=== PATIENT | female | born 1930 | race Hispanic/Latino ===

== ENCOUNTER 2018-09-05 22:17 | Inpatient (IN) | payer MEDICARE ==
[~2018-09-05] VITALS: Ht 160 cm; Wt 65.6 kg
[2018-09-05 22:55] LABS: BASOPHILS % (AUTO) 0.3 % (0.0-5.0); EOSINOPHILS % (AUTO) 2.5 % (0.0-8.0); HEMATOCRIT 45.9 % (36-48); LYMPHOCYTES % (AUTO) 28.8 % (21.0-51.0); MEAN CORPUSCULAR HEMOGLOBIN 34.3 pg (27.0-33.0); MEAN CORPUSCULAR HGB CONC 34.5 g/dL (32.0-36.0); MEAN CORPUSCULAR VOLUME 99.5 fL (79-99); MONOCYTES % (AUTO) 6.4 % (3.0-13.0); PLATELET COUNT (AUTO) 159 K/uL (130-400); RED BLOOD CELL COUNT(AUTO) 4.62 MIL/uL (4.00-5.50); RED CELL DISTRIBUTION WIDTH 14.3 % (11.0-15.5); WHITE BLOOD COUNT (AUTO) 6.4 K/uL (4.8-10.8)
[2018-09-05 23:07] LABS: CARBON DIOXIDE 33 mmol/L (21-32); CHLORIDE 101 mmol/L (101-111); CREATININE 1.4 mg/dL (0.5-1.5); GLOMERULAR FILTR. RATE CALC 38 mL/min (>60); GLUCOSE,RANDOM 139 mg/dL (70-105); POTASSIUM 3.9 mmol/L (3.5-5.1); SODIUM SERUM 142 mmol/L (136-145); UREA NITROGEN, BLOOD 26 mg/dL (7-18)
[2018-09-05 23:09] LABS: INR 0.96 (0.85-1.15); PARTIAL THROMBOPLASTIN TIME 26.1 SEC (26.3-35.5); PROTHROMBIN TIME 10.1 SEC (9.6-11.6)
[2018-09-05] MEDS ORDERED: LEVOFLOXACIN 500 MG/D5W 100 ML 100 ML ONE (23:09)
[2018-09-05] MEDS ORDERED: METHYLPREDNISOLONE SOD SUCC 125MG/2ML VIAL ONE (23:09)
[2018-09-05 23:12] LABS: APPEARANCE,URINE Clear (CLEAR); BILIRUBIN,URINE Negative (NEGATIVE); COLOR,URINE Yellow (YELLOW); GLUCOSE, URINE (UA) Negative (NEGATIVE); KETONES,URINE Trace mg/dL (NEGATIVE); LEUKOCYTE ESTERASE ,URINE Moderate (NEGATIVE); NITRATE,URINE Negative (NEGATIVE); OCCULT BLOOD,URINE Negative (NEGATIVE); PROTEIN,URINE POS 2+ (NEGATIVE); UROBILINOGEN,URINE 0.2 mg/dL (0.2-1.0)
[2018-09-05 23:20] LABS: ALANINE AMINOTRANSFERASE 20 U/L (12-78); ALBUMIN 3.5 g/dL (3.5-5.0); ASPARTATE AMINOTRANSFERASE 21 U/L (10-37); BILIRUBIN,TOTAL 0.9 mg/dL (0.2-1.0); CREATINE KINASE, TOTAL 18 U/L (21-232); MYOGLOBIN 100 ng/mL (10-92); TOTAL PROTEIN, SERUM 7.7 g/dL (6.0-8.3); TROPONIN I < 0.04 ng/mL (0.00-0.06)
[2018-09-05 23:22] LABS: BACTERIA,URINE Few /HPF (None Seen); MUCUS,URINE Moderate LPF (None Seen); RBC,URINE None Seen /HPF (0-1); SQUAMOUS EPITHELIAL CELL,UR Few /HPF (0-2)
[2018-09-06 00:43] LABS: ABG BASE EXCESS 4.7 mmol/L (-2.0-3.0); ABG HCO3 31.4 mmol/L (21.0-28.0); ABG OXYGEN SATURATION 97.6 % (95.0-99.0); ABG PCO2 55 mmHg (32-45)
[2018-09-06] MEDS ORDERED: IOHEXOL-350 75 ML VIAL IV ONE (01:18)
[2018-09-06] MEDS ORDERED: LORAZEPAM 2 MG/ML 1 ML VIAL ONE ×2 (01:49→02:51)
[2018-09-06] MEDS ORDERED: IPRATROPIUM/ALBUTEROL SULFATE 3 ML SOLUTION IH ONE ×3 (03:38→09:09)
[2018-09-06] MEDS: LEVOFLOXACIN 500 MG/D5W 100 ML 100 ML IV SCH (06:00)
[2018-09-06] MEDS: IPRATROPIUM/ALBUTEROL SULFATE 3 ML SOLUTION IH PRN ×5 (06:13→21:28)
[2018-09-06] MEDS ORDERED: ENOXAPARIN SODIUM 30 MG/0.3 ML SQ ONE (07:59)
[2018-09-06] MEDS ORDERED: PANTOPRAZOLE SODIUM 40 MG TABLET.DR PO ONE (08:00)
[2018-09-06 08:20] LABS: EOSINOPHILS % (AUTO) 0.1 % (0.0-8.0); MEAN CORPUSCULAR VOLUME 98.9 fL (79-99); RED CELL DISTRIBUTION WIDTH 14.1 % (11.0-15.5)
[2018-09-06 08:28] LABS: BASOPHILS % (AUTO) 0.1 % (0.0-5.0); HEMATOCRIT 42.4 % (36-48); LYMPHOCYTES % (AUTO) 11.6 % (21.0-51.0); MEAN CORPUSCULAR HEMOGLOBIN 34.4 pg (27.0-33.0); MEAN CORPUSCULAR HGB CONC 34.8 g/dL (32.0-36.0); MONOCYTES % (AUTO) 0.9 % (3.0-13.0); NEUTROPHILS % (AUTO) 87.3 % (40.0-77.0); PLATELET COUNT (AUTO) 139 K/uL (130-400); RED BLOOD CELL COUNT(AUTO) 4.28 MIL/uL (4.00-5.50)
[2018-09-06 08:30] LABS: CREATININE 1.5 mg/dL (0.5-1.5); POTASSIUM 4.1 mmol/L (3.5-5.1)
[2018-09-06 08:35] LABS: ALBUMIN 3.1 g/dL (3.5-5.0); BILIRUBIN,TOTAL 0.5 mg/dL (0.2-1.0); TOTAL PROTEIN, SERUM 7.3 g/dL (6.0-8.3)
[2018-09-06] MEDS ORDERED: RANI150C4 PO (08:38)
[2018-09-06] MEDS ORDERED: ALLO100T PO (08:38)
[2018-09-06] MEDS ORDERED: POTA10TA14 PO (08:38)
[2018-09-06] MEDS ORDERED: CHOL200012 PO (08:38)
[2018-09-06] MEDS ORDERED: AMLO5TAB7 PO (08:38)
[2018-09-06] MEDS ORDERED: CALC0.253 PO (08:38)
[2018-09-06] MEDS ORDERED: FURO40TA5 PO (08:38)
[2018-09-06] MEDS ORDERED: FOLI1TAB85 PO (08:38)
[2018-09-06] MEDS ORDERED: MONT10TA21 PO (08:38)
[2018-09-06] MEDS ORDERED: CALC-1009 PO (08:38)
[2018-09-06] MEDS ORDERED: PRAV20TA4 PO (08:38)
[2018-09-06 08:45] LABS: LYMPHOCYTES % (MANUAL) 8 % (22-44); MAN.DIFF COMMENT-IMPRESSION MANUAL DIFFERENTIAL; MONOCYTES % (MANUAL) 1 % (2-9); PLATELET MORPHOLOGY COMMENT ADEQUATE; REACTIVE LYMPHOCYTES 9 % (0-0); SEGMENTED NEUTROPHILS % 82 % (40-70)
[2018-09-06] MEDS: ENOXAPARIN SODIUM 30 MG/0.3 ML SQ SCH (09:00)
[2018-09-06] MEDS: PANTOPRAZOLE SODIUM 40 MG TABLET.DR PO SCH (09:00)
[2018-09-06 09:30] VITALS: BP 151/66
[2018-09-06 11:00] VITALS: BP 151/73
[2018-09-06] MEDS ORDERED: FUROSEMIDE 10 MG/ML 4ML VIAL IV SCH ×2 (12:15→17:15)
[2018-09-06] MEDS ORDERED: CALCITRIOL 0.25 MCG CAPSULE PO SCH (12:30)
[2018-09-06 16:00] VITALS: BP 141/57
[2018-09-06] MEDS ORDERED: LABETALOL HCL 5 MG/ML 20ML VIAL IV PRN (17:15)
[2018-09-06] MEDS: AMLODIPINE BESYLATE 5 MG TAB PO SCH (17:50)
[2018-09-06] MEDS ORDERED: SODIUM CHLORIDE 3% FOR INHALATION 4 ML/AMP VIAL.NEB IH ONE (19:14)
[2018-09-06 20:00] VITALS: BP 128/61
[2018-09-06] MEDS: INSULIN HUMULIN R 100 UNIT/ML 3ML SQ SCH (21:00)
[2018-09-06] MEDS: ALLOPURINOL 100 MG TABLET PO SCH (21:31)
[2018-09-06] MEDS: FUROSEMIDE 10 MG/ML 4ML VIAL IV SCH (21:31)
[2018-09-06] MEDS: METHYLPREDNISOLONE SOD SUCC 40MG/ML 1ML IVP SCH (21:31)
[2018-09-06] MEDS: RANITIDINE HCL 15 MG/1 ML PO SCH (21:31)
[2018-09-07] VITALS: BP 131/59
[2018-09-07] MEDS: IPRATROPIUM/ALBUTEROL SULFATE 3 ML SOLUTION IH PRN ×6 (01:28→22:15)
[2018-09-07] MEDS ORDERED: SODIUM CHLORIDE 3% FOR INHALATION 4 ML/AMP VIAL.NEB IH ONE ×2 (02:39→07:21)
[2018-09-07 04:00] VITALS: BP 138/58
[2018-09-07 04:27] LABS: HEMATOCRIT 39.4 % (36-48); LYMPHOCYTES % (AUTO) 7.3 % (21.0-51.0); MEAN CORPUSCULAR HEMOGLOBIN 34.4 pg (27.0-33.0); MEAN CORPUSCULAR HGB CONC 34.6 g/dL (32.0-36.0); MEAN CORPUSCULAR VOLUME 99.4 fL (79-99); MONOCYTES % (AUTO) 2.2 % (3.0-13.0); NEUTROPHILS % (AUTO) 90.5 % (40.0-77.0); PLATELET COUNT (AUTO) 122 K/uL (130-400); RED BLOOD CELL COUNT(AUTO) 3.97 MIL/uL (4.00-5.50); RED CELL DISTRIBUTION WIDTH 14.1 % (11.0-15.5); WHITE BLOOD COUNT (AUTO) 4.6 K/uL (4.8-10.8)
[2018-09-07 04:41] LABS: B-TYPE NATRIURETIC PEPTIDE 210 pg/mL (0-100)
[2018-09-07 04:47] LABS: ALBUMIN 2.9 g/dL (3.5-5.0); BILIRUBIN,TOTAL 0.4 mg/dL (0.2-1.0); CREATININE 1.6 mg/dL (0.5-1.5); TOTAL PROTEIN, SERUM 6.5 g/dL (6.0-8.3)
[2018-09-07] MEDS: LEVOFLOXACIN 500 MG/D5W 100 ML 100 ML IV SCH (05:23)
[2018-09-07] MEDS: METHYLPREDNISOLONE SOD SUCC 40MG/ML 1ML IVP SCH ×3 (05:23→21:47)
[2018-09-07] MEDS: INSULIN HUMULIN R 100 UNIT/ML 3ML SQ SCH ×4 (06:44→20:52)
[2018-09-07 07:34] VITALS: BP 137/62
[2018-09-07] MEDS: **HM** VIT D3 2000 UNITS PO SCH (09:00)
[2018-09-07] MEDS ORDERED: AMLODIPINE BESYLATE 5 MG TAB PO SCH (09:00)
[2018-09-07] MEDS ORDERED: FUROSEMIDE 40 MG TABLET PO SCH (09:00)
[2018-09-07] MEDS: CALCIUM 600 + VITAMIN D 400 TABLET PO SCH (10:19)
[2018-09-07] MEDS: ALLOPURINOL 100 MG TABLET PO SCH ×2 (10:20→20:51)
[2018-09-07] MEDS: ATORVASTATIN CALCIUM 10 MG TABLET PO SCH (10:20)
[2018-09-07] MEDS: PANTOPRAZOLE SODIUM 40 MG TABLET.DR PO SCH (10:20)
[2018-09-07] MEDS: AMLODIPINE BESYLATE 5 MG TAB PO SCH (10:20)
[2018-09-07] MEDS: POTASSIUM CHLORIDE 10 MEQ/TAB.SA PO SCH (10:20)
[2018-09-07] MEDS: MONTELUKAST SODIUM 10 MG TAB PO SCH (10:20)
[2018-09-07] MEDS: ENOXAPARIN SODIUM 30 MG/0.3 ML SQ SCH (10:21)
[2018-09-07] MEDS: FOLIC ACID/VITAMIN B COMP W-C 1 MG CAPSULE PO SCH (10:21)
[2018-09-07 11:48] VITALS: BP 144/67
[2018-09-07] MEDS: RANITIDINE HCL 15 MG/1 ML PO SCH ×2 (12:03→20:51)
[2018-09-07] MEDS: FUROSEMIDE 10 MG/ML 4ML VIAL IV SCH ×2 (12:03→20:51)
[2018-09-07 16:00] VITALS: BP 138/68
[2018-09-07 20:12] VITALS: BP 149/61
[2018-09-08 00:12] VITALS: BP 145/68
[2018-09-08 04:16] VITALS: BP 158/75
[2018-09-08] MEDS: LEVOFLOXACIN 500 MG/D5W 100 ML 100 ML IV SCH (04:53)
[2018-09-08] MEDS: METHYLPREDNISOLONE SOD SUCC 40MG/ML 1ML IVP SCH ×3 (04:53→21:33)
[2018-09-08] MEDS: INSULIN HUMULIN R 100 UNIT/ML 3ML SQ SCH ×4 (05:14→20:46)
[2018-09-08] MEDS ORDERED: NA P133E22 RC (05:29)
[2018-09-08] MEDS ORDERED: NA PHOS M B PR PRN (05:30)
[2018-09-08] MEDS ORDERED: NA PHOS DI BA PR PRN (05:30)
[2018-09-08] MEDS ORDERED: LORAZEPAM 2 MG/ML 1 ML VIAL IVP ONE (06:00)
[2018-09-08 07:39] VITALS: BP 140/65
[2018-09-08] MEDS: IPRATROPIUM/ALBUTEROL SULFATE 3 ML SOLUTION IH PRN ×2 (08:15→19:16)
[2018-09-08] MEDS: AMLODIPINE BESYLATE 5 MG TAB PO SCH (08:30)
[2018-09-08] MEDS: MONTELUKAST SODIUM 10 MG TAB PO SCH (08:31)
[2018-09-08] MEDS: CALCIUM 600 + VITAMIN D 400 TABLET PO SCH (08:31)
[2018-09-08] MEDS: RANITIDINE HCL 15 MG/1 ML PO SCH ×2 (08:31→20:08)
[2018-09-08] MEDS: PANTOPRAZOLE SODIUM 40 MG TABLET.DR PO SCH (08:31)
[2018-09-08] MEDS: ALLOPURINOL 100 MG TABLET PO SCH ×2 (08:31→20:08)
[2018-09-08] MEDS: FOLIC ACID/VITAMIN B COMP W-C 1 MG CAPSULE PO SCH (08:31)
[2018-09-08] MEDS: POTASSIUM CHLORIDE 10 MEQ/TAB.SA PO SCH (08:31)
[2018-09-08] MEDS: ATORVASTATIN CALCIUM 10 MG TABLET PO SCH (08:31)
[2018-09-08] MEDS: **HM** VIT D3 2000 UNITS PO SCH (08:32)
[2018-09-08] MEDS: ENOXAPARIN SODIUM 30 MG/0.3 ML SQ SCH (08:32)
[2018-09-08] MEDS: FUROSEMIDE 10 MG/ML 4ML VIAL IV SCH ×2 (08:33→20:08)
[2018-09-08 11:25] VITALS: BP 132/71
[2018-09-08 15:48] VITALS: BP 148/76
[2018-09-08 20:16] VITALS: BP 162/78
[2018-09-09 00:24] VITALS: BP 158/77
[2018-09-09 03:58] LABS: HEMATOCRIT 41.3 % (36-48); MEAN CORPUSCULAR HEMOGLOBIN 34.6 pg (27.0-33.0); MEAN CORPUSCULAR HGB CONC 34.8 g/dL (32.0-36.0); MEAN CORPUSCULAR VOLUME 99.5 fL (79-99); NUCLEATED RED BLOOD CELLS 0.1 % (0.0-0.19); PLATELET COUNT (AUTO) 140 K/uL (130-400); RED BLOOD CELL COUNT(AUTO) 4.15 MIL/uL (4.00-5.50); RED CELL DISTRIBUTION WIDTH 14.4 % (11.0-15.5); WHITE BLOOD COUNT (AUTO) 4.4 K/uL (4.8-10.8)
[2018-09-09 04:07] LABS: CREATININE 1.5 mg/dL (0.5-1.5); MAGNESIUM 2.1 mg/dL (1.80-2.40); POTASSIUM 3.7 mmol/L (3.5-5.1)
[2018-09-09 04:24] VITALS: BP 150/70
[2018-09-09] MEDS: METHYLPREDNISOLONE SOD SUCC 40MG/ML 1ML IVP SCH ×2 (05:21→14:26)
[2018-09-09] MEDS: LEVOFLOXACIN 500 MG/D5W 100 ML 100 ML IV SCH (05:21)
[2018-09-09] MEDS: INSULIN HUMULIN R 100 UNIT/ML 3ML SQ SCH ×3 (06:34→16:30)
[2018-09-09 08:00] VITALS: BP 146/58
[2018-09-09] MEDS: RANITIDINE HCL 15 MG/1 ML PO SCH (08:17)
[2018-09-09] MEDS: FOLIC ACID/VITAMIN B COMP W-C 1 MG CAPSULE PO SCH (08:17)
[2018-09-09] MEDS: FUROSEMIDE 10 MG/ML 4ML VIAL IV SCH (08:18)
[2018-09-09] MEDS: POTASSIUM CHLORIDE 10 MEQ/TAB.SA PO SCH (08:18)
[2018-09-09] MEDS: AMLODIPINE BESYLATE 5 MG TAB PO SCH (08:18)
[2018-09-09] MEDS: ATORVASTATIN CALCIUM 10 MG TABLET PO SCH (08:18)
[2018-09-09] MEDS: PANTOPRAZOLE SODIUM 40 MG TABLET.DR PO SCH (08:18)
[2018-09-09] MEDS: CALCIUM 600 + VITAMIN D 400 TABLET PO SCH (08:18)
[2018-09-09] MEDS: ALLOPURINOL 100 MG TABLET PO SCH (08:18)
[2018-09-09] MEDS: MONTELUKAST SODIUM 10 MG TAB PO SCH (08:19)
[2018-09-09] MEDS: ENOXAPARIN SODIUM 30 MG/0.3 ML SQ SCH (08:19)
[2018-09-09] MEDS: **HM** VIT D3 2000 UNITS PO SCH (09:00)
[2018-09-09 11:00] VITALS: BP 151/62
[2018-09-09] MEDS ORDERED: PRED20TA3 PO (15:28)
[2018-09-09] MEDS ORDERED: LEVO500T2 PO (15:28)
[2018-09-09] MEDS ORDERED: ENOX30DI4 SQ (15:28)
[2018-09-09] MEDS ORDERED: IPRA3AMP24 IH (15:28)
[2018-09-09] MEDS ORDERED: FURO10VI4 IV (15:28)
[2018-09-09 16:00] VITALS: BP 156/71
[2018-09-09 19:50] VITALS: BP 148/76
== END 2018-09-09 20:52 | DRG 190 ==
LOC: EDH 22:17 → EDHIP 09-06 03:51 → OBSVTOIN 09-06 03:51 → 4CH 09-06 09:19
PROVIDERS: ADMIT Internal Medicine Pulmonary Disease; ATTEND Internal Medicine Pulmonary Disease
DX: J44.1 Chronic obstructive pulmonary disease with (acute) exacerbation (principal); I50.33 Acute on chronic diastolic (congestive) heart failure; I11.0 Hypertensive heart disease with heart failure; J44.0 Chronic obstructive pulmonary disease with (acute) lower respiratory infection; R79.1 Abnormal coagulation profile; Z53.29 Procedure and treatment not carried out because of patient's decision for other reasons; E78.5 Hyperlipidemia, unspecified; J20.9 Acute bronchitis, unspecified; Z88.1 Allergy status to other antibiotic agents
CPT/HCPCS: 36415; 36600; 70360; 71045; 71046; 71250; 80048; 80053; 80339; 81001; 82550; 82803; 82948; 83605; 83735; 83874; 83880; 84484; 85025; 85027; 85378; 85610; 85730; 87040; 87088; 87804; 92507; 92610; 93005; 93306; 93970; 94640; 94664; 97039; 99291; J1650; J1815; J1940; J1956; J2060; J2920; J2930; Q9967

== ENCOUNTER 2018-11-17 18:25 | Inpatient (IN) | payer MEDICARE ==
[~2018-11-17] VITALS: Ht 160 cm; Wt 68.7 kg
[~2018-11-17 18:25] MED LIST: ALLO100T PO; AMLO5TAB9 PO; CALC-1009 PO; CALC0.253 PO; CHOL200012 PO; ENOX30DI4 SQ; FOLI1TAB85 PO; FURO10VI4 IV; FURO40TA5 PO; IPRA3AMP24 IH; LEVO500T2 PO; MONT10TA21 PO; NA P133E22 RC; POTA10TA14 PO; PRAV20TA4 PO; PRED20TA3 PO; RANI150C4 PO
[2018-11-17 19:00] LABS: BASOPHILS % (AUTO) 0.5 % (0.0-5.0); EOSINOPHILS % (AUTO) 1.4 % (0.0-8.0); HEMATOCRIT 44.6 % (36-48); MEAN CORPUSCULAR HEMOGLOBIN 34.7 pg (27.0-33.0); MEAN CORPUSCULAR HGB CONC 34.1 g/dL (32.0-36.0); MEAN CORPUSCULAR VOLUME 101.7 fL (79-99); NEUTROPHILS % (AUTO) 59.1 % (40.0-77.0); PLATELET COUNT (AUTO) 152 K/uL (130-400); RED BLOOD CELL COUNT(AUTO) 4.38 MIL/uL (4.00-5.50); RED CELL DISTRIBUTION WIDTH 15.4 % (11.0-15.5); WHITE BLOOD COUNT (AUTO) 4.8 K/uL (4.8-10.8)
[2018-11-17] MEDS ORDERED: ASPIRIN 325 MG TABLET ONE (19:01)
[2018-11-17 19:13] LABS: CREATININE 1.2 mg/dL (0.5-1.5); POTASSIUM 4.2 mmol/L (3.5-5.1)
[2018-11-17 19:17] LABS: ALBUMIN 3.1 g/dL (3.5-5.0); BILIRUBIN,TOTAL 0.6 mg/dL (0.2-1.0)
[2018-11-17 19:40] LABS: B-TYPE NATRIURETIC PEPTIDE 68 pg/mL (0-100)
[2018-11-17 20:19] LABS: INR 0.95 (0.85-1.15); PARTIAL THROMBOPLASTIN TIME 26.1 SEC (26.3-35.5)
[2018-11-17] MEDS ORDERED: ONDANSETRON HCL 4 MG/2 ML VIAL ONE (22:20)
[2018-11-17] MEDS ORDERED: MORPHINE SULFATE 4 MG/1ML SYG ONE (22:20)
[2018-11-17] MEDS ORDERED: NITROGLYCERIN 0.4 MG SL TAB SL ONE (22:21)
[2018-11-18 02:31] LABS: APPEARANCE,URINE Clear (CLEAR); BILIRUBIN,URINE Negative (NEGATIVE); COLOR,URINE Yellow (YELLOW); GLUCOSE, URINE (UA) Negative (NEGATIVE); KETONES,URINE Negative (NEGATIVE); LEUKOCYTE ESTERASE ,URINE Large (NEGATIVE); NITRATE,URINE Negative (NEGATIVE); OCCULT BLOOD,URINE Negative (NEGATIVE); PH,URINE 5.5 (5.0-8.0); PROTEIN,URINE Negative (NEGATIVE); UROBILINOGEN,URINE 0.2 mg/dL (0.2-1.0)
[2018-11-18 02:43] LABS: BACTERIA,URINE Few /HPF (None Seen); HYALINE CASTS, URINE 0-1 /LPF (0-1 /LPF); RBC,URINE None Seen /HPF (0-1); SQUAMOUS EPITHELIAL CELL,UR 0-2 /HPF (0-2)
[2018-11-18 06:36] LABS: BASOPHILS % (AUTO) 0.5 % (0.0-5.0); EOSINOPHILS % (AUTO) 1.1 % (0.0-8.0); HEMATOCRIT 42.3 % (36-48); LYMPHOCYTES % (AUTO) 31.5 % (21.0-51.0); MEAN CORPUSCULAR HEMOGLOBIN 33.7 pg (27.0-33.0); MEAN CORPUSCULAR HGB CONC 33.2 g/dL (32.0-36.0); MEAN CORPUSCULAR VOLUME 101.5 fL (79-99); MONOCYTES % (AUTO) 8.6 % (3.0-13.0); NEUTROPHILS % (AUTO) 58.3 % (40.0-77.0); NUCLEATED RED BLOOD CELLS 0.1 % (0.0-0.19); PLATELET COUNT (AUTO) 135 K/uL (130-400); RED BLOOD CELL COUNT(AUTO) 4.17 MIL/uL (4.00-5.50); RED CELL DISTRIBUTION WIDTH 14.8 % (11.0-15.5); WHITE BLOOD COUNT (AUTO) 4.3 K/uL (4.8-10.8)
[2018-11-18 06:43] LABS: CREATININE 1.3 mg/dL (0.5-1.5); POTASSIUM 4.3 mmol/L (3.5-5.1)
[2018-11-18 06:49] LABS: BILIRUBIN,TOTAL 0.8 mg/dL (0.2-1.0); MAGNESIUM 1.9 mg/dL (1.80-2.40); PHOSPHORUS 5.1 mg/dL (2.5-4.9); TOTAL PROTEIN, SERUM 6.8 g/dL (6.0-8.3)
[2018-11-18] MEDS ORDERED: ASPIRIN 325 MG TABLET ONE (09:33)
[2018-11-18] MEDS ORDERED: ONDANSETRON HCL MDV 20ML 2 MG/ML VIAL IVP PRN (13:15)
[2018-11-18 13:37] LABS: ABG BASE EXCESS 3.4 mmol/L (-2.0-3.0); ABG HCO3 29.7 mmol/L (21.0-28.0); ABG OXYGEN SATURATION 94.9 % (95.0-99.0); ABG PCO2 51 mmHg (32-45)
[2018-11-18] MEDS ORDERED: ONDANSETRON HCL 4 MG/2 ML VIAL IVP PRN (15:00)
[2018-11-18] MEDS ORDERED: LEVOFLOXACIN 500 MG/D5W 100 ML 100 ML IV SCH (15:00)
[2018-11-18] MEDS ORDERED: FUROSEMIDE 10 MG/ML 4ML VIAL IV ONE (15:55)
[2018-11-18] MEDS ORDERED: METOPROLOL TARTRATE 25 MG TAB PO ONE (16:00)
[2018-11-18] MEDS ORDERED: METOPROLOL TARTRATE 25 MG TAB ONE (16:08)
[2018-11-18] MEDS ORDERED: LEVOFLOXACIN 500 MG/D5W 100 ML 100 ML ONE (16:08)
[2018-11-18] MEDS ORDERED: FUROSEMIDE 10 MG/ML 4ML VIAL ONE (16:08)
[2018-11-18 17:00] VITALS: BP 135/60
[2018-11-18] MEDS ORDERED: LIDOCAINE HCL-MPF 1% 2ML VIAL IVP PRN (17:00)
[2018-11-18] MEDS ORDERED: DEXTROSE 50%-WATER 50 ML DISP.SYRIN IV PRN (17:00)
[2018-11-18] MEDS ORDERED: GLUCAGON 1MG KIT 1 MG ML IM PRN (17:00)
[2018-11-18] MEDS ORDERED: POTASSIUM CHLORIDE 10% ELIXIR 20 MEQ/15 ML UDCUP PO PRN (17:00)
[2018-11-18] MEDS ORDERED: POTASSIUM CHLORIDE 20MEQ/100ML 100 ML IV PRN (17:00)
[2018-11-18] MEDS ORDERED: ALEN70TA10 PO (18:01)
[2018-11-18] MEDS: FUROSEMIDE 40 MG TABLET PO SCH (18:07)
[2018-11-18 19:15] VITALS: BP 126/61
[2018-11-18] MEDS: METOPROLOL TARTRATE 25 MG TAB PO SCH (20:53)
[2018-11-19] VITALS: BP 140/59
[2018-11-19 04:00] VITALS: BP 134/69
[2018-11-19 04:39] LABS: HEMATOCRIT 39.4 % (36-48); MEAN CORPUSCULAR HEMOGLOBIN 34.5 pg (27.0-33.0); MEAN CORPUSCULAR HGB CONC 33.7 g/dL (32.0-36.0); MEAN CORPUSCULAR VOLUME 102.4 fL (79-99); PLATELET COUNT (AUTO) 138 K/uL (130-400); RED BLOOD CELL COUNT(AUTO) 3.85 MIL/uL (4.00-5.50); RED CELL DISTRIBUTION WIDTH 14.8 % (11.0-15.5)
[2018-11-19 04:50] LABS: CREATININE 1.5 mg/dL (0.5-1.5); MAGNESIUM 1.7 mg/dL (1.80-2.40); PHOSPHORUS 3.9 mg/dL (2.5-4.9); POTASSIUM 4.1 mmol/L (3.5-5.1)
--- NOTE | 2018-11-19 06:05 | NUR ---
Called to assess pt because pt was c/o SOB. HR75 SpO2 95% RR 36bpm. No wheezing notied. BBS clear/dim. Pt states she has phlegm that she can't get out. States that she uses MDI at home that she uses at least 3x day which helps her but did not bring. Nurse notified.
--- NOTE | 2018-11-19 06:18 | NUR ---
patient complained of short of breath, Spo2-96% with 2L nc. Paged from [facility] and call the Respiratory therapist to assess the patient.
[2018-11-19] MEDS: IPRATROPIUM/ALBUTEROL SULFATE 3 ML SOLUTION IH PRN ×3 (07:06→21:14)
[2018-11-19 08:00] VITALS: BP 144/54
[2018-11-19] MEDS: METOPROLOL TARTRATE 25 MG TAB PO SCH ×2 (08:39→20:59)
[2018-11-19] MEDS: ASPIRIN 81MG TAB.CHEW PO SCH (08:39)
[2018-11-19] MEDS: FUROSEMIDE 40 MG TABLET PO SCH (08:39)
[2018-11-19] MEDS: PANTOPRAZOLE SODIUM 40 MG TABLET.DR PO SCH (08:39)
[2018-11-19] MEDS: ENOXAPARIN SODIUM 40 MG/0.4 ML SYRINGE SQ SCH (08:40)
[2018-11-19 11:00] VITALS: BP 133/61
--- NOTE | 2018-11-19 14:31 | NUR ---
DCP CM met with pt discussed dc plans. Pt is semi-independent, lives at home with son. Has a walker and wheelchair. Denies any other equipments/services. Pt feels safe to go back home, son and daughter assists with transportation and needs as necessary. DC plan to home once stable. CM to con to follow up. Addendum: 11/19/18 at 1432 by KELLY ORTA LVN CM Amended: Links added.
[2018-11-19] MEDS: LEVOFLOXACIN 250 MG/D5W 50ML 50 ML IVPB SCH (15:12)
[2018-11-19 16:00] VITALS: BP 154/62
[2018-11-19 19:16] VITALS: BP 133/54
[2018-11-19] MEDS: SENNOSIDES 8.6 MG TABLET PO SCH (20:59)
[2018-11-19] MEDS: FLUTICASONE PROPIONATE 50MCG/SPRAY 16 GM BOTTLE EN SCH (20:59)
[2018-11-19] MEDS: FUROSEMIDE 10 MG/ML 4ML VIAL IV SCH (20:59)
[2018-11-20] VITALS (7 sets, daily range): BP systolic 124–153; BP diastolic 41–71
[2018-11-20 05:26] LABS: CREATININE 1.5 mg/dL (0.5-1.5); POTASSIUM 3.6 mmol/L (3.5-5.1)
[2018-11-20] MEDS: PANTOPRAZOLE SODIUM 40 MG TABLET.DR PO SCH (07:58)
[2018-11-20] MEDS: SENNOSIDES 8.6 MG TABLET PO SCH ×2 (07:58→22:10)
[2018-11-20] MEDS: FUROSEMIDE 10 MG/ML 4ML VIAL IV SCH ×2 (07:59→22:10)
[2018-11-20] MEDS: ENOXAPARIN SODIUM 40 MG/0.4 ML SYRINGE SQ SCH (07:59)
[2018-11-20] MEDS: METOPROLOL TARTRATE 25 MG TAB PO SCH ×2 (07:59→22:10)
[2018-11-20] MEDS: ASPIRIN 81MG TAB.CHEW PO SCH (07:59)
[2018-11-20] MEDS: FLUTICASONE PROPIONATE 50MCG/SPRAY 16 GM BOTTLE EN SCH (08:00)
[2018-11-20] MEDS: LEVOFLOXACIN 250 MG/D5W 50ML 50 ML IVPB SCH (14:38)
[2018-11-20] MEDS: IPRATROPIUM/ALBUTEROL SULFATE 3 ML SOLUTION IH PRN ×2 (19:25→21:57)
[2018-11-21] VITALS (7 sets, daily range): BP systolic 127–158; BP diastolic 52–72
[2018-11-21] MEDS: IPRATROPIUM/ALBUTEROL SULFATE 3 ML SOLUTION IH PRN ×3 (02:15→21:16)
[2018-11-21] MEDS: ASPIRIN 81MG TAB.CHEW PO SCH (08:58)
[2018-11-21] MEDS: SENNOSIDES 8.6 MG TABLET PO SCH ×2 (08:58→20:32)
[2018-11-21] MEDS: PANTOPRAZOLE SODIUM 40 MG TABLET.DR PO SCH (08:58)
[2018-11-21] MEDS: METOPROLOL TARTRATE 25 MG TAB PO SCH ×2 (08:58→20:32)
[2018-11-21] MEDS: FLUTICASONE PROPIONATE 50MCG/SPRAY 16 GM BOTTLE EN SCH (08:58)
[2018-11-21] MEDS: FUROSEMIDE 10 MG/ML 4ML VIAL IV SCH ×2 (08:58→20:32)
[2018-11-21] MEDS: ENOXAPARIN SODIUM 40 MG/0.4 ML SYRINGE SQ SCH (08:59)
--- NOTE | 2018-11-21 10:00 | NUR ---
Fleet Enema Order for fleet enema, fleet enema given, pt stated enema works with X 3 BM, nursing will continue to monitor.
--- NOTE | 2018-11-21 12:15 | NUR ---
[facility] Discussed dcp with patient. Patient chose [facility]. Signed [facility]ANDY and Choice Letter. Referral faxed w/ [facility] to [phone] w/ fax confirmation received. Notified [facility] of referral. CM to follow up on acceptance. CD Addendum: 11/21/18 at 1216 by TEO DE ANDA CM Amended: Links added.
[2018-11-21] MEDS: LEVOFLOXACIN 250 MG/D5W 50ML 50 ML IVPB SCH (16:09)
--- NOTE | 2018-11-21 17:00 | NUR ---
DCP UPDATE SPOKE TO KARY AT [facility], STATED SHE HAD NOT RECIEVED REPORT ON THIS REFERRAL, SENT PT NOTES AND THE COMPLETE PKG AGAIN, EXPECT DC IN AM - RICKI BOSS UPDATED AND MED REC COMPLETION REQUESTED . MICHAEL VILLA
[2018-11-21] MEDS: POTASSIUM CHLORIDE 20 MEQ ERTAB PO PRN (20:33)
[2018-11-22 03:20] VITALS: BP 140/57
[2018-11-22] MEDS: IPRATROPIUM/ALBUTEROL SULFATE 3 ML SOLUTION IH PRN (07:31)
[2018-11-22 08:31] VITALS: BP 155/61
--- NOTE | 2018-11-22 09:15 | NUR ---
ACCEPTED AT [facility] RN GERA CHACON IS ACCEPTED. PENDING MED REC/EPORT
[2018-11-22] MEDS: METOPROLOL TARTRATE 25 MG TAB PO SCH (09:32)
[2018-11-22] MEDS: FUROSEMIDE 10 MG/ML 4ML VIAL IV SCH (09:32)
[2018-11-22] MEDS: PANTOPRAZOLE SODIUM 40 MG TABLET.DR PO SCH (09:32)
[2018-11-22] MEDS: ENOXAPARIN SODIUM 40 MG/0.4 ML SYRINGE SQ SCH (09:32)
[2018-11-22] MEDS: ASPIRIN 81MG TAB.CHEW PO SCH (09:32)
[2018-11-22] MEDS: SENNOSIDES 8.6 MG TABLET PO SCH (09:32)
[2018-11-22] MEDS: FLUTICASONE PROPIONATE 50MCG/SPRAY 16 GM BOTTLE EN SCH (09:33)
[2018-11-22] MEDS ORDERED: GUAIFENESIN-DM 200/20 MG 10 ML PO PRN (11:45)
[2018-11-22] MEDS ORDERED: FUROSEMIDE 10 MG/ML 4ML VIAL IV ONE (12:50)
[2018-11-22 13:24] VITALS: BP 140/51
[2018-11-22] MEDS: LEVOFLOXACIN 250 MG/D5W 50ML 50 ML IVPB SCH (13:42)
[2018-11-22] MEDS ORDERED: FUROSEMIDE 80 MG TABLET PO SCH (16:00)
[2018-11-22] MEDS: POTASSIUM CHLORIDE 20 MEQ ERTAB PO PRN (16:12)
[2018-11-22 17:07] VITALS: BP 154/63
[2018-11-22] MEDS ORDERED: METOPROLOL TARTRATE 25 MG TAB PO SCH (21:00)
[2018-11-22] MEDS ORDERED: LISINOPRIL 5 MG TABLET PO SCH (21:00)
== END 2018-11-22 18:25 | DRG 291 ==
LOC: EDH 18:25 → EDHIP 22:04 → 3AH 11-18 16:05
PROVIDERS: ADMIT Internal Medicine Critical Care Medicine; ATTEND Internal Medicine Critical Care Medicine
DX: I11.0 Hypertensive heart disease with heart failure (principal); J96.01 Acute respiratory failure with hypoxia; N30.00 Acute cystitis without hematuria; I50.33 Acute on chronic diastolic (congestive) heart failure; E66.9 Obesity, unspecified; I35.0 Nonrheumatic aortic (valve) stenosis; E11.36 Type 2 diabetes mellitus with diabetic cataract; I25.10 Atherosclerotic heart disease of native coronary artery without angina pectoris; Z83.3 Family history of diabetes mellitus; Z82.49 Family history of ischemic heart disease and other diseases of the circulatory system; Z68.26 Body mass index [BMI] 26.0-26.9, adult
CPT/HCPCS: 36415; 36600; 71045; 71046; 80048; 80053; 81001; 82803; 83735; 83880; 84100; 84484; 85025; 85027; 85610; 85730; 87088; 93005; 94640; 94664; 94760; 97039; G0378; J1650; J1940; J1956; J2270; J2405

== ENCOUNTER 2019-01-02 05:33 | Inpatient (IN) | payer MEDICARE | END 2019-01-06 18:50 | disposition home or self-care (01) | LOC: EDH 05:33 → EDHIP 07:24 → 4CH 10:08 | DX: I13.0 Hypertensive heart and chronic kidney disease with heart failure and stage 1 through stage 4 chronic kidney disease, or unspecified chronic kidney disease (principal); J96.01 Acute respiratory failure with hypoxia; J98.11 Atelectasis; J44.0 Chronic obstructive pulmonary disease with (acute) lower respiratory infection; I50.9 Heart failure, unspecified; I11.0 Hypertensive heart disease with heart failure; E11.22 Type 2 diabetes mellitus with diabetic chronic kidney disease; Z72.0 Tobacco use ==